=== PATIENT | female | born 1970 | race Caucasian/White ===

== ENCOUNTER 2017-11-30 15:59 | Outpatient (REF) | payer MEDICAID, SELFPAY ==
--- NOTE | 2017-11-30 12:30 | ENDOMET_PTH ---
PATIENT: Lea Montes LOC: [facility] U#:[id number] AGE/SX: 47/F ROOM: RE11/30/[address]: Nazario Nair MD : [id number] BED: DIS: 11/30/2017 SPEC #: [id number] RECD: 11/30/17 17:04 STATUS: CANDI RERyan #: [id number] ZOE: 11/30/17 12:[address]: Nazario Nair DEPT: Surgical Specimen RECD BY: Sharona Tran ENTERED: 11/30/17 17:05 SP TYPE: Endomet OTHR DR: Kiersten Sanchez Tissues: 1 - ENDOMETRIUM BX/TAHMINAETTE Procedures: GROSS AND MICRO LEVEL 4 Comments: [id number]
== END 2017-11-30 16:19 ==
LOC: LBN 15:59
PROVIDERS: PCP Physician Assistant; Visit Provider Obstetrics & Gynecology
DX: N85.8 Other specified noninflammatory disorders of uterus (principal); N93.8 Other specified abnormal uterine and vaginal bleeding; R93.89 Abnormal findings on diagnostic imaging of other specified body structures
CPT/HCPCS: 88305

== ENCOUNTER 2018-03-21 15:04 | Emergency (ER) | payer MEDICAID, SELFPAY ==
[2018-03-21] VITALS (18 sets, daily range): BP systolic 116–133; BP diastolic 54–77; PULSE 64–70; RESP 17; TEMP 37–37.2; O2SAT 94–99
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
== END 2018-03-21 20:26 | disposition home or self-care (01) ==
PROVIDERS: Emergency Provider Physician Assistant; PCP Physician Assistant
DX: S09.90XA Unspecified injury of head, initial encounter (principal); S16.1XXA Strain of muscle, fascia and tendon at neck level, initial encounter; S20.212A Contusion of left front wall of thorax, initial encounter; V47.5XXA Car driver injured in collision with fixed or stationary object in traffic accident, initial encounter
CPT/HCPCS: 81025; 99284; 70450; 71046; 71100; 72125; 99285; L0172

== ENCOUNTER 2021-11-10 09:16 | Emergency (ER) | payer MEDICAID, SELFPAY ==
[2021-11-10 09:44] VITALS: BP 137/85; PULSE 61; RESP 18; TEMP 36.7; O2SAT 98
[2021-11-10 10:03] LABS: Bilirubin Negative (Negative); Blood Small (Negative); Clarity Sl Cloudy (Clear); Glucose Negative (Negative); Ketones Negative (Negative); Leukocyte Esterase Small (Negative); Nitrite Negative (Negative); Specific Gravity >= 1.030 (1.005-1.025); Urobilinogen 0.2 EU/dL (Up TO 0.2); pH 5.5 (5-8)
[2021-11-10 10:13] LABS: Bacteria Moderate HPF (Negative); Crystals Negative HPF (Negative); Epithelial Cells Few HPF (Negative); Mucus Trace (Negative)
[2021-11-10 10:14] LABS: C & S Indicated? Yes; Casts Negative LPF (Negative)
--- NOTE | 2021-11-10 11:00 | DI.CT_ITS ---
Exam(s) CT ABDOMEN PELVIS WO/W EXAM: CT ABDOMEN PELVIS WO/W CLINICAL HISTORY: ct urogram, right flank pain, hx of RCC, partial n TECHNIQUE: Imaging Protocol: Axial computed tomography images with coronal and sagittal reformatted images were created and reviewed CONTRAST MATERIAL: Intravenous: Omnipaque 350 Contrast volume:100 mL Oral: No COMPARISON: CT ABD/PELVIS WO W CONTRAST from 09/13/2012 CT CHEST FOR PULMONARY EMBOLUS from 05/30/2017 FINDINGS: ABDOMEN: Lung Bases: Normal where visualized. Liver: Normal density. No measurable mass. Portal, Superior Mesenteric, and Splenic Veins: Unremarkable. Gallbladder and Biliary Tract: No radiodense calculus or dilation. Pancreas: Normal density, no abnormal calcifications or inflammatory process. Spleen: Normal. Adrenals: No masses seen. Kidneys: There is a partial left nephrectomy. No radiodense stones or obstructive uropathy. There ar e few tiny hypodensities seen in the kidneys. They are too small for further characterization but li sarah reflect small cysts. Abdominal Aorta: Abdominal portion non-dilated. There is minimal atherosclerosis. Bowel: No obstruction or bowel wall thickening. Appendix is unremarkable. There are few diverticula s een in the colon but no evidence of acute diverticulitis. Peritoneal Cavity: No ascites, collection or mesenteric inflammatory response. No free air. Lymph Nodes: Within normal limits. Bones: Within normal limits for the patient's age. Soft Tissues: There is a fat containing right inguinal hernia. PELVIS: Bladder: Symmetric distention, no gross wall thickening. Reproductive Organs: Unremarkable as visualized. Lymph Nodes: Within normal limits. Bones: Within normal limits for the patient's age. IMPRESSION: 1. No acute abdominal or pelvic process. 2. No evidence of nephrolithiasis or hydronephrosis. No evidence of a renal ureteral or bladder mass . 3. Status post partial left nephrectomy. 4. Small fat containing right inguinal hernia. 5. Unremarkable gallbladder and appendix. 6. Findings were discussed with the emergency department on the date of the examination. RADIATION DOSE DELIVERED: 3,722.78mGy.cm Total DLP 3,722.78mGy.cm Total DLP DATA REPOSITORY: All CT scans at this facility are submitted to the National Radiology Data Registry (NRDR) Dose Index Registry (DIR) with the [employer] ([employer]). RADIATION OPTIMIZATION: All CT scans at this facility use at least one of these dose optimization te chniques: automated exposure control; mA and/or kV adjustment per patient size (includes targeted exa ms where dose is matched to clinical indication); or iterative reconstruction.
[2021-11-10 11:53] LABS: Abs Immature Grans 0.04 10^3/uL (0.0-0.06); Absolute Basophil Count 0.08 10^3/uL (0.0-0.2); Absolute Lymphocyte Count 3.54 10^3/uL (1.2-3.4); Absolute Monocyte Count 1.02 10^3/uL (0.1-0.8); Absolute Neutrophil Count 6.02 10^3/uL (1.2-6.7); Basophils % 0.7; Eosinophils % 2.6; HCT 44.5 % (36.0-46.0); HGB 15.1 g/dL (11.2-15.7); Immature Grans % 0.4; Lymphocytes % 32.2; MCH 32.5 pg (27.0-33.0); MCHC 33.9 % (32.0-36.0); MCV 96 fL (80-95); MPV 10.1 fL (8.0-11.0); Monocytes % 9.3; Neutrophils % 54.8; Platelet Count 183 10^3/uL (130-400); RBC 4.65 10^6/uL (3.93-5.22); RDW 12.6 % (11.7-14.6); RDW-SD 44.7 fL; WBC 10.98 10^3/uL (4.4-10.8)
[2021-11-10 11:54] LABS: Absolute Eosinophil Count 0.29 10^3/uL (0.0-0.7)
[2021-11-10 12:14] LABS: ALT 24 U/L (14-59); AST 15 U/L (15-37); Albumin 3.5 g/dL (3.4-5.0); Alkaline Phosphatase 108 U/L (46-116); Anion Gap 5.4 mmol/L (3-11); BUN 14 mg/dL (7-18); Bilirubin, Total 0.3 mg/dL (0.2-1.0); CO2 28.6 mmol/L (21.0-32.0); CREATININE 0.8 mg/dL (0.55-1.02); Calcium 9.3 mg/dL (8.5-10.1); Chloride 106 mmol/L (98-107); Estimated GFR 88.05 (mL/min/1.73m2); Glucose 93 mg/dL (74-106); Lipase 93 U/L (73-393); Sodium 140 mmol/L (136-145); Total Protein 7.3 g/dL (6.4-8.2)
[2021-11-10] MEDS: Omnipaque 350 MG/ML 100 ML BTL IV (13:12)
[2021-11-10] MEDS: Normal Saline Flush 10 ML SYR IVP (13:17)
[2021-11-10 13:19] VITALS: BP 128/53; PULSE 58; O2SAT 100
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
== END 2021-11-10 14:48 | disposition home or self-care (01) ==
PROVIDERS: Physician Assistant; Emergency Provider Physician Assistant; PCP Physician Assistant
DX: N39.0 Urinary tract infection, site not specified (principal); B96.89 Other specified bacterial agents as the cause of diseases classified elsewhere; F17.210 Nicotine dependence, cigarettes, uncomplicated
CPT/HCPCS: 80053; 83690; 99285; 74178; 81003; 81015; 85025; 87086; 99284; J3490

== ENCOUNTER 2021-12-06 13:47 | Emergency (ER) | payer MEDICAID, SELFPAY ==
[2021-12-06] VITALS (13 sets, daily range): BP systolic 129–154; BP diastolic 77–83; PULSE 61–90; RESP 9–21; TEMP 36.5; O2SAT 88–99
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
[2021-12-06 14:33] LABS: Abs Immature Grans 0.01 10^3/uL (0.0-0.06); Absolute Basophil Count 0.07 10^3/uL (0.0-0.2); Absolute Eosinophil Count 0.29 10^3/uL (0.0-0.7); Absolute Lymphocyte Count 2.17 10^3/uL (1.2-3.4); Absolute Monocyte Count 0.83 10^3/uL (0.1-0.8); Absolute Neutrophil Count 5.28 10^3/uL (1.2-6.7); Basophils % 0.8; Eosinophils % 3.4; HCT 47.6 % (36.0-46.0); HGB 15.9 g/dL (11.2-15.7); Immature Grans % 0.1; Lymphocytes % 25.1; MCH 31.5 pg (27.0-33.0); MCHC 33.4 % (32.0-36.0); MCV 94 fL (80-95); MPV 10.5 fL (8.0-11.0); Monocytes % 9.6; Platelet Count 169 10^3/uL (130-400); RBC 5.04 10^6/uL (3.93-5.22); RDW 12.5 % (11.7-14.6); RDW-SD 43.7 fL; WBC 8.65 10^3/uL (4.4-10.8)
[2021-12-06 14:47] LABS: ALT 22 U/L (14-59); AST 19 U/L (15-37); Albumin 3.6 g/dL (3.4-5.0); Alkaline Phosphatase 99 U/L (46-116); Anion Gap 6.7 mmol/L (3-11); BUN 13 mg/dL (7-18); Bilirubin, Total 0.3 mg/dL (0.2-1.0); CO2 29.3 mmol/L (21.0-32.0); CREATININE 0.9 mg/dL (0.55-1.02); Chloride 104 mmol/L (98-107); Estimated GFR 76.44 (mL/min/1.73m2); Glucose 97 mg/dL (74-106); Potassium 3.7 mmol/L (3.5-5.1); Sodium 140 mmol/L (136-145); Total Protein 7.5 g/dL (6.4-8.2)
[2021-12-06] MEDS: Omnipaque 350 MG/ML 500 ML BTL-Imaging package IJ (15:42)
[2021-12-06] MEDS: Normal Saline Flush 10 ML SYR IVP (15:45)
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
[2021-12-06] MEDS: Acetaminophen 325 MG TAB 650 MG PO (17:16)
== END 2021-12-06 17:31 | disposition home or self-care (01) ==
PROVIDERS: Emergency Provider Student in an Organized Health Care Education/Training Program; PCP Physician Assistant
DX: S20.211A Contusion of right front wall of thorax, initial encounter (principal); K82.8 Other specified diseases of gallbladder; S10.93XA Contusion of unspecified part of neck, initial encounter; V89.2XXA Person injured in unspecified motor-vehicle accident, traffic, initial encounter
CPT/HCPCS: 70498; 74177; 80053; 86850; 86900; 86901; 99285; 70450; 71260; 72125; 85025; 99282

== ENCOUNTER 2021-12-12 08:07 | Emergency (ER) | payer MEDICAID, SELFPAY ==
[2021-12-12 08:13] VITALS: BP 124/50; PULSE 67; RESP 17; TEMP 37.3; O2SAT 98
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
== END 2021-12-12 09:23 | disposition home or self-care (01) ==
PROVIDERS: Emergency Provider Physician Assistant; PCP Physician Assistant
DX: T16.1XXA Foreign body in right ear, initial encounter (principal); X58.XXXA Exposure to other specified factors, initial encounter
CPT/HCPCS: 99281; 99282

== ENCOUNTER 2022-03-15 08:40 | Emergency (ER) | payer MEDICAID, SELFPAY ==
[2022-03-15 08:44] VITALS: BP 125/79; PULSE 76; RESP 16; TEMP 36.9; O2SAT 98
--- NOTE | 2022-03-15 08:45 | DI.RAD_ITS ---
Exam(s) XR HAND LT COMPLETE EXAM: XR HAND LT COMPLETE CLINICAL HISTORY: Thenar eminence pain, FOOSH injury R/O Fracture. TECHNIQUE: 2D digital imaging was performed. COMPARISON: No exams were available for comparison FINDINGS: 3 views No evidence of fracture or dislocation. No radiopaque foreign body. No osseous lesions nor erosions . IMPRESSION: No fracture evident. DATA REPOSITORY: RADIATION DOSE DELIVERED:
--- NOTE | 2022-03-15 09:00 | ED.GENADUL_ITS ---
Discharge Plan Disposition Patient Disposition: Home Condition: Stable Discharge Details Clinical Impression: Closed head injury with concussion, Sprain of hand, thumb, left, Fall from other slipping, tripping, or stumbling Primary Care Provider: Kiersten Sanchez ED Provider: Mary Kay Grier Home Meds and New Rx's Prescriptions: Continued furosemide 20 mg tablet 1 tab PO DAILY Label Comments: TAKE 1 TABLET BY MOUTH EVERY DAY albuterol sulfate [ProAir HFA] 90 mcg/actuation HFA aerosol inhaler 1 inh INHALATION PRN PRN Label Comments: INHALE TWO PUFFS BY MOUTH EVERY 4 TO 6 HOURS NEEDED Advair HFA 230-21 mcg/actuation HFA aerosol inhaler 2 inh INHALATION DAILY Label Comments: INHALE TWO PUFFS BY MOUTH TWICE A DAY Discharge Instructions Instructions: Head Injury (ED), Fall Prevention (ED) Additional Instructions: CT of your head shows no acute intracranial abnormality. The x-ray of your hand is within normal limits. I do suspect mild concussion and a hand sprain. You will be sore for the next few days. Take the nausea medication up to 3 times daily as needed for nausea 20 to 30 minutes before eating or drinking anything. Take the Flexeril as prescribed. This may make you sleepy do not operate heavy machinery while taking this medication. You may alternate ice and heat if this helps. Follow up with primary care provider in 3-5 days. Return to ED sooner if any worsening headache not relieved by Tylenol or ibuprofen, confusion, vomiting, worsening visual disturbances or concerns. Increase oral fluids. Please take Tylenol with food every 4-6 hours as needed for pain and swelling. Referrals: Kiersten Sanchez [Primary Care Provider] - 2 weeks Medical Decision Making 48-year-old female presents with mechanical fall yesterday slipping on the ice. She is complaining of headache, visual disturbances she reports floaters to her right eye. Daytime sleepiness and nausea. She denies any loss of conscio usness. She does have some paraspinous neck pain no midline C-spine tenderness no midline T or L-spine tenderness. She also complaining of some left hand pain. She did take Tylenol yesterday. She is alert and oriented x4. Zofran ordered for nausea. CT head ordered to rule out intracranial abnormality and x-ray of left hand. Patient is alert and oriented no focal neurodeficits noted. I do suspect a concussion. Will rule out fracture to left hand. I did offer patient a muscle relaxer which she declined at this time so she drove herself here. CT within normal limits, hand shows no fracture. I did discuss these results with patient who verbalized understanding. She reports that her nausea is better she is requesting muscle relaxer and nausea medication to go home with. Patient given bottle of Flexeril and Zofran to go. Discussed strict return instructions and red flags with her she verbalized understanding. This text was generated using [employer] system, please disregard any oddities of phrase or misspellings. Medical Records Medical records reviewed: Yes I reviewed the patient's medical records. HPI General Mode of arrival: ambulatory . Date/Time Provider Initiated Documentation: 03/15/22 08:45 . Limitations to Documentation: no limitations . Information obtained by: patient, RN notes reviewed and old records reviewed . HPI Narrative: Female presents to the ER status post slip and fall yesterday on the ice. Patient reports that her feet went out from underneath her and she landed on her back and back of her head. She also put her left arm out with a FOOSH type injury. She is complaining of left hand pain, headache, increased sleepiness, eye floaters and overall stiffness. She denies any loss of consciousness during the fall. She denies any neck pain no midline C-spine tenderness with palpation no back pain or hip or pelvis pain. She endorses nausea no vomiting. Past medical history includes bipolar disorder, depression migraine obesity, renal cancer. She reports that she is just been diagnosed with breast cancer. She does have a surgical history of nephrectomy, bladder repair surgery and a bladder sling. She reports that she took Tylenol yesterday none this morning. Related Data Home Medications Medication Instructions Recorded Confirmed albuterol sulfate 90 mcg/actuation 1 inh inhalation PRN PRN 11/10/21 03/15/22 aerosol inhaler (ProAir HFA) fluticasone propionate 230 2 inh inhalation DAILY 11/10/21 03/15/22 mcg-salmeterol 21 mcg/actuation HFA inhaler (Advair HFA) furosemide 20 mg tablet 1 tab PO DAILY 11/10/21 03/15/22 Allergies Allergy/AdvReac Type Severity Reaction Status Date / Time ibuprofen Allergy Severe Swelling/Ed Unverified 03/15/22 08:47 lety Penicillins Allergy Severe Anaphylaxsi Unverified 03/15/22 08:47 s morphine Allergy Anaphylaxis Unverified 03/15/22 08:47 NSAIDS (Non-Steroidal Allergy Unverified 03/15/22 08:47 Anti-Inflamma General Stated Complaint: Fall/Non TraumaCriteria ANTHONY: 4 Review of Systems All systems reviewed & are unremarkable except as noted in HPI and below Constitutional Constitutional: Reports as per HPI, Reports daytime sleepiness, Reports headache(s) and Denies weakness Eyes Eyes: Denies blurry vision, Reports floaters, Denies loss of peripheral vision and Denies loss of vision ENT Ears, Nose, Mouth, and Throat: Denies abnormal hearing, Denies vertigo, Denies dizziness and Reports headache(s) Cardiovascular Cardiovascular: Denies chest pain and Denies dyspnea Respiratory Respiratory: Denies dyspnea Musculoskeletal Musculoskeletal: Denies back pain, Denies deformity, Reports arthralgias, Denies loss of height, Denies numbness, Reports stiffness and Reports tingling (Left hand (Chronic)) Integumentary/Breasts Skin/Breast: Reports skin pain, Denies skin swelling and Denies wounds Neurologic Neurologic: Reports as per HPI, Denies abnormal hearing, Denies abnormal movements, Denies abnormal speech, Denies confusion, Denies vertigo, Denies dizziness, Reports headache(s), Denies lack of coordination, Denies localized weakness, Denies loss of vision, Denies memory loss, Denies numbness, Reports tingling (Left hand (Chronic)), Denies weakness and Reports other Psychiatric Psychiatric: Denies confusion and Denies memory loss PFSH All Active Problems (Updated 03/15/22 @ 10:27 by Mary Kay Grier NP) Closed head injury with concussion (Acute) Sprain of hand, thumb, left (Acute) Fall from other slipping, tripping, or stumbling (Acute) History of endometrial biopsy (Acute) Medical History (Updated 03/15/22 @ 10:27 by Mary Kay Grier NP) Bipolar disorder Depression Migraine Obesity Renal cancer Surgical History H/O bladder repair surgery History of nephrectomy Partial Nephrectomy TOT (Incontinence sling) Social History Smoking/Tobacco Use Status: Current every day Tobacco Type: cigarettes Smoking risk assessment performed?: Yes Alcohol Intake: current Alcohol Intake frequency: holidays/special occasions only Alcohol type: wine Drug use: Daily Substance use type: marijuana Do you feel safe at home: Yes Do you feel safe in your relationship?: Yes Exam Narrative Exam Narrative: General: Well Developed, Awake and Alert, conversant. Skin: Warm and Dry HEENT: Head: No palpable deformities, Normocephalic, tenderness to the occiput with palpation no hematomas palpated no lacerations or wounds. Eyes: Pupils PERRLA, EOM's intact. No periorbital eccymosis or step off Ears: Canal patent. Tympanic membranes are clear . No ventura's sign, no hemptympanum. Nose/Face: Atraumatic. Facial bones nontender to palpation and stable with manipulation. Mouth/Throat: No intraoral trauma. Teeth and mandible are intact. Neck: No midline tenderness, no step off, no deformity to palpation of C-spine. Trachea midline. Chest: No surface trauma. Nontender without crepitus or deformity. Lungs clear to ausculatation bilaterally. Heart: RRR, no rubs, murmurs or gallop. Abdomen: No abrasions, ecchymosis, or surface trauma. Nondistended. Nontender to palpation no guarding, rebound, or rigidity. Pelvis: Nontender to palpation and stable to compression. Femoral pulses strong and equal Extremities: no surface trauma. Sensation intact. Peripheral pulses intact and equal. Tenderness to the left thenar eminence, no obvious deformity noted no wrist pain no forearm pain. Neuro: ANO x4, GCS 15, cranial nerves II through XII intact. Motor and sensory exam nonfocal. Reflexes are symmetric. Course Vital Signs Vital signs: Vital Signs Temperature 36.9 C 03/15/22 08:44 Pulse 76 03/15/22 08:44 Respiratory Rate 16 03/15/22 08:44 Blood Pressure 125/79 03/15/22 08:44 Pulse Oximetry 98 03/15/22 08:44 Temperature 36.9 C 03/15/22 08:44 Temperature Source Temporal Artery Scan 03/15/22 08:44 Pulse 76 03/15/22 08:44 Respiratory Rate 16 03/15/22 08:44 Respiratory Effort Non-Labored 03/15/22 08:47 Blood Pressure 125/79 03/15/22 08:44 Blood Pressure Position Sitting 03/15/22 08:44 Pulse Oximetry 98 03/15/22 08:44 Oxygen Delivery Method Room Air 03/15/22 08:44 Oxygen Flow Rate 0 03/15/22 08:44 Pain Level 10 03/15/22 08:44
[2022-03-15] MEDS: Ondansetron O.D.T. 4 MG TABEF PO (09:05)
--- NOTE | 2022-03-15 09:46 | DI.CT_ITS ---
Exam(s) CT HEAD WO EXAM: CT HEAD WO CLINICAL HISTORY: Fall, Closed head Injury. TECHNIQUE: Imaging Protocol: Axial computed tomography images with coronal and sagittal reformatted images were created and reviewed COMPARISON: CT CT HEAD CERVICAL SPINE WO from 12/06/2021 FINDINGS: There are no skull fractures. There is no fluid in the visualized paranasal sinuses. There is no evidence of intracranial hemorrhage, mass effect, or shift of midline structures. There are no extra-axial fluid collections. The ventricles are not enlarged or shifted and there is no blo od within the ventricular system nor within the basal cisterns. IMPRESSION: No acute intracranial findings on this noninfused CT scan of the brain. Called by myself to ER RADIATION DOSE DELIVERED: 822.59mGy.cm Total DLP DATA REPOSITORY: All CT scans at this facility are submitted to the National Radiology Data Registry (NRDR) Dose Index Registry (DIR) with the [employer] (ACR). RADIATION OPTIMIZATION: All CT scans at this facility use at least one of these dose optimization te chniques: automated exposure control; mA and/or kV adjustment per patient size (includes targeted exa ms where dose is matched to clinical indication); or iterative reconstruction.
[2022-03-15] MEDS: Cyclobenzaprine 10 MG TAB, 3 TABS/BTL PO (10:37)
[2022-03-15] MEDS: Ondansetron O.D.T. 4 MG TABEF, 3 TABS/BTL PO (10:38)
[2022-03-15 10:43] VITALS: BP 128/79; PULSE 88; RESP 18; O2SAT 96
== END 2022-03-15 10:46 | disposition home or self-care (01) ==
PROVIDERS: Emergency Provider Registered Nurse Emergency; PCP Physician Assistant
DX: S06.0X0A Concussion without loss of consciousness, initial encounter (principal); S63.602A Unspecified sprain of left thumb, initial encounter; G89.11 Acute pain due to trauma; M54.2 Cervicalgia; W00.0XXA Fall on same level due to ice and snow, initial encounter; R11.0 Nausea
CPT/HCPCS: 99284; 70450; 73130

== ENCOUNTER 2022-07-27 02:45 | Outpatient (CLI) | payer MEDICAID, SELFPAY ==
--- NOTE | 2022-07-27 10:00 | DI.DEXA_ITS ---
Exam(s) XR DEXA BONE DENSITY W/WO FIDENCIO EXAM: XR DEXA BONE DENSITY W/WO FIDENCIO CLINICAL HISTORY: BREAST CA,C50.919,Z17.0,SENIOR LIVING USE AROMATASE INHIBITOR TECHNIQUE: Routine DEXA evaluation of the lumbar spine, hip, or forearm. COMPARISON: No exams were available for comparison FINDINGS: Performed on a Hologic unit. Lateral image: No compression fracture evident. Lumbar Spine total T-score: 0.2 Hip total T-score:1.8 Independent reading at the level of the femoral neck yields T-score of 0.6 Forearm total T-score: 0.1 IMPRESSION: Bone mineral density measures in the normal range. Fracture risk is low Note: Any spine fracture indicates 5x risk for subsequent spine fracture and 2x risk for subsequent h ip fracture. World Health Organization criteria for BMD interpretation classify patients: Normal...... T- Score at or above -1.0 Osteopenic... T- Score between -1.0 and -2.5 Osteoporosis... T-Score at or below -2.5
== END 2022-07-27 03:05 ==
LOC: DI 02:46
PROVIDERS: PCP Physician Assistant; Visit Provider Internal Medicine Medical Oncology
DX: C50.919 Malignant neoplasm of unspecified site of unspecified female breast (principal); Z13.820 Encounter for screening for osteoporosis; Z12.0 Encounter for screening for malignant neoplasm of stomach
CPT/HCPCS: 77080

== ENCOUNTER → 2023-01-29 02:26 | Outpatient (CLI) | payer MEDICAID, SELFPAY ==
--- NOTE | 2023-01-29 | DI.US_ITS ---
Exam(s) US PELVIS TRANSVAGINAL EXAM: US PELVIS TRANSVAGINAL CLINICAL HISTORY: ABNL FINDINGS R93.89 ENDOMETRIUM THICKENING TECHNIQUE: Ultrasound of the pelvis was performed both transabdominal and transvaginal. COMPARISON: US RENAL ULTRASOUND(P) {[id number]} from 12/19/[address] CHEST/ABD/PEL W from 12/06/2021 FINDINGS: UTERUS: Nongravid and anteverted Measures 12 cm length x 6 cm AP x cm wide. There are no uterine fibroids. Endometrial thickness is increased, measuring 17 mm. There is a polypoid density in the fundal aspec t of the endometrium measuring 14 x 10 x 12 mm. there is no fluid in the endometrial canal. CERVIX: There are no obvious nabothian cysts. OVARIES: Both ovaries were not able to be identified CUL-DE-SAC: No free fluid evident. IMPRESSION: 1. Thickened endometrium and there also appears to be a 14 x 10 x 12 mm polypoid structure either wit hin or immediately subjacent to the upper endometrial cavity at the level of the fundus. This probab ly represents a polyp in the endometrial cavity at this level. 2. Both ovaries were not able to be identified. 3. No free fluid evident in the adnexal regions and cul-de-sac. DATA REPOSITORY:
== END ==
PROVIDERS: PCP Physician Assistant; Visit Provider Internal Medicine
DX: R93.89 Abnormal findings on diagnostic imaging of other specified body structures (principal)
CPT/HCPCS: 76830; 76856

== ENCOUNTER 2023-03-05 05:14 | Outpatient (CLI) | payer MEDICAID, SELFPAY ==
[2023-03-05 08:52] LABS: Abs Immature Grans 0.02 10^3/uL (0.0-0.06); Absolute Basophil Count 0.07 10^3/uL (0.0-0.2); Absolute Eosinophil Count 0.31 10^3/uL (0.0-0.7); Absolute Monocyte Count 0.89 10^3/uL (0.1-0.8); Basophils % 0.9; HCT 45.5 % (36.0-46.0); Immature Grans % 0.3; Lymphocytes % 33.8; MCH 31.2 pg (27.0-33.0); MCV 95 fL (80-95); MPV 9.8 fL (8.0-11.0); Monocytes % 11.6; Neutrophils % 49.4; Platelet Count 182 10^3/uL (130-400); RBC 4.81 10^6/uL (3.93-5.22); RDW 13.1 % (11.7-14.6); WBC 7.69 10^3/uL (4.4-10.8)
== END 2023-03-05 05:15 | disposition home or self-care (01) ==
LOC: LBO 05:14
PROVIDERS: PCP Physician Assistant; Visit Provider Obstetrics & Gynecology
DX: Z01.818 Encounter for other preprocedural examination (principal)
CPT/HCPCS: 36415; 86850; 86900; 86901; 85025

== ENCOUNTER 2023-03-07 09:23 | Day surgery (SDC) | payer MEDICAID, SELFPAY ==
[2023-03-07] VITALS (9 sets, daily range): BP systolic 113–195; BP diastolic 55–102; PULSE 55–68; RESP 16–21; TEMP 36.3–36.6; O2SAT 91–98; BMI 42.7
[2023-03-07] MEDS: Lactated Ringers 1,000 ML 125 ML IV (10:08)
--- NOTE | 2023-03-07 10:19 | W.ANESPRE ---
General Info Date of Service Date Performed: 03/07/23 Height: 5 ft 7 in Weight: 123.6 kg Body Mass Index (BMI): 42.7 Surgical Procedure: Operation Date: 03/07/23 12:10 Proposed Procedure Side Surgeon p Dilation & Curettage with Hysteroscopy, Myosure Yael Knowles DO Meds Allergies and Home Medications Allergies Allergy/AdvReac Type Severity Reaction Status Date / Time aspirin Allergy Severe Verified 03/07/23 09:41 ibuprofen Allergy Severe Swelling/Ed Verified 03/07/23 09:41 lety NSAIDS (Non-Steroidal Allergy Severe Anaphylaxis Verified 03/07/23 09:41 Anti-Inflamma Penicillins Allergy Severe Anaphylaxsi Verified 03/07/23 09:41 s morphine Allergy Anaphylaxis Verified 03/07/23 09:41 Home Medication Medication Instructions Recorded albuterol sulfate 90 mcg/actuation 1 inh inhalation PRN PRN 11/10/21 aerosol inhaler (ProAir HFA) fluticasone propionate 230 2 inh inhalation DAILY 11/10/21 mcg-salmeterol 21 mcg/actuation HFA inhaler (Advair HFA) furosemide 20 mg tablet 1 tab PO DAILY 11/10/21 cholecalciferol (vitamin D3) 50 50 mcg PO DAILY 02/14/23 mcg (2,000 unit) capsule venlafaxine 150 mg 150 mg PO DAILY 02/14/23 capsule,extended release 24 hr (Effexor XR) anastrozole 1 mg tablet 1 mg PO DAILY 03/06/23 Current Visit Medications: Current Medications Generic Name Dose Route Start Last Admin Trade Name Freq PRN Reason Stop Dose Admin Ringer's Solution 1,000 mls @ 125 mls/hr 03/07/23 06:00 03/07/23 10:08 IV 03/07/23 23:59 125 mls/hr INFUSION TAE Administration IV Miscellaneous Supplies 1 each 03/07/23 06:00 Iv Access IV 03/07/23 23:59 DIRECTED TAE Sodium Chloride 0 ml 03/07/23 06:00 Normal Saline Flush 10 Ml Syr IV 03/07/23 23:59 PRN PRN Sodium Chloride 0 ml 03/07/23 06:00 Normal Saline 10 Ml Vial IJ 03/07/23 23:59 DIRECTED PRN Sterile Water 0 ml 03/07/23 06:00 Water,Injection,Sterile 10 Ml Vial IJ 03/07/23 23:59 DIRECTED PRN PFSH Active Problems Active Problems: Problem Status Onset Code History of breast cancer Z85.3 Thickened endometrium R93.89 Postmenopausal bleeding N95.0 History of endometrial biopsy Z92.89 Medical History Medical History Breast cancer Radiation tx June 2022 Renal cancer Bipolar disorder Migraine Obesity Depression Surgical History Surgical History H/O bladder repair surgery History of nephrectomy L TOT (Incontinence sling) Partial Nephrectomy Tobacco Smoking/Tobacco Use Status: Current every day Tobacco Type: cigarettes Smoking cigarettes per day: 10 Alcohol Alcohol Intake: current Alcohol type: wine Substance Use Substance use: Daily Substance use type: marijuana Vital Signs and Lab Results Vital Signs Most Recent Vital Signs in EMR: Most Recent Vital Signs Temp Pulse Resp BP Pulse Ox 36.6 C 60 16 113/68 96 03/07/23 09:45 03/07/23 09:45 03/07/23 09:45 03/07/23 09:45 03/07/23 09:45 Point of Care Results Point of Care Results: POC- Test(urine) Negative 03/07/23 10:13 Lab Results Blood Type / Crossmatch: Patient ABO/Rh O Positive 03/05/23 Antibody Screen NEGATIVE 03/05/23 Complete Blood Count: White Blood Count 7.69 10^3/uL (4.4-10.8) 03/05/23 08:45 Red Blood Count 4.81 10^6/uL (3.93-5.22) 03/05/23 08:45 Hemoglobin 15.0 g/dL (11.2-15.7) 03/05/23 08:45 Hematocrit 45.5 % (36.0-46.0) 03/05/23 08:45 Platelet Count 182 10^3/uL (130-400) 03/05/23 08:45 Complete Metabolic Panel: No Data to Display Liver Function Panel: No Data to Display Coagulation Panel: No Data to Display Cardiac Panel: No Data to Display Arterial Blood Gas: No Data to Display Venous Blood Gas: No Data to Display Pancreas Panel: No Data to Display Thyroid Panel: No Data to Display Infectious Disease: No Data to Display Blood Cultures: No Data to Display Toxicology Panel: No Data to Display Imaging and Studies Imaging and Studies Study information below may be from another EMR and interpreted by another provider. Please see original notes in EMR for more complete details. Stress Test Summary: 12/26/13: STRESS TEST REPORT PROTOCOL: Bhavesh. TARGET HEART RATE: 148-175 (85-100% of maximal). HEART RATE ACHIEVED: 155 bpm. TERMINATION OF EXERCISE: At 05 minutes 27 seconds, because: Fatigue, patient request. ARRHYTHMIAS: None. ANGINA: None. EKG CHANGES: None. IMPRESSION: Negative for ischemia. Carotid Artery Summary:: 12/06/13: IMPRESSION: 1. Normal CTA examination of the neck. 2. Results of this exam have been verbally communicated with provider. Anesthesia Assessment and Plan Anesthesia History Personal History: No History of Anesthesia Complications Family History: No Family History of Anesthesia Complications Exercise Tolerance Exercise Tolerance: Metabolic Equivalents>4 Pertinent Negatives Pertinent Negatives: No Symptoms of GERD, No Major Cardiovascular Symptoms or Complaints and No Major Pulmonary Symptoms or Complaints Cardiac & Pulmonary Exam Cardiac Exam: Normal S1/S2 Heart Sounds Pulmonary Exam: Clear Bilateral Breath Sounds Implantable Cardiac Device Does patient have a Pacemaker or an ICD?: No Airway Exam Known Difficult Airway: No Mallampati Class: 1 Mouth Opening: Normal (> 3cm) Thyromental Distance: Greater than 3 cm Neck Range of Motion: Full ROM Neck Circumference: Normal Teeth Condition: Normal Dentition ASA Classification ASA Score: ASA 3 Emergency Case?: No NPO Status NPO Status: NPO Clears >2 hours, Solids >8 hours Anesthesia Plan Resuscitation Status: Full Code Anesthesia Technique: General Anesthesia Airway Planned: LMA Monitors Used: Standard Monitors and SedLine
--- NOTE | 2023-03-07 11:30 | ENDO_PTH ---
PATIENT: Lea Montes LOC: [facility] U#:[id number] AGE/SX: 53/F ROOM: RE03/07/[address]: Yael Knowles DO : 1970 BED: DIS: 03/07/2023 SPEC #: [id number] RECD: 03/07/23 12:07 STATUS: CANDI RE #: [id number] ZOE: 03/07/23 11:[address]: Yael Knowles DEPT: Surgical Specimen RECD BY: Sharona Tran ENTERED: 03/07/23 12:08 SP TYPE: Endo OTHR DR: Dotty Pascual Tissues: 1 - ENDOCERVICAL BX/CURRETTE 2 - ENDOMETRIUM BX/CURRETTE Procedures: GROSS AND MICRO LEVEL 4 Comments: [id number]
--- NOTE | 2023-03-07 11:40 | ROE_ITS ---
Date of service: 03/07/23 Time of Service: 11:40 Operative Note Operative Note DATE OF PROCEDURE: 03/07/23 PRE-OP DIAGNOSIS: Thickened endometrium, suspect polyp POST-OP DIAGNOSIS: same (No polyp seen) PROCEDURE: Hysteroscopy with dilation and curettage SURGEON: Yael Knowles ANESTHESIA TYPE: General LMA/ETT Refer to Anesthesia Record ESTIMATED BLOOD LOSS: 5 PATHOLOGY: other (1. Endocervical curetting 2. Endometrial curetting) Patient was transported to: PACU Patient's condition: stable Indications: Bleeding, thickened endometrium, suspected polyp Findings: Smooth regular endometrial cavity with slightly plush endometrium. No evidence of endocervical or endometrial polyp. No intrauterine fibroids noted. Visuali zation of both tubal ostia without difficulty. Procedure Description: After full informed consent, patient was taken the operating suite with an IV running. She is placed in dorsal supine position and general anesthesia administered. She was prepped and draped in the usual sterile fashion and a timeout was performed. Exam under anesthesia revealed a uterus that was midline and mobile. Speculum was inserted into the vaginal vault and a single-tooth tenaculum used to grasp the anterior lip of the cervix. Cervical os dilated to the point that a 5 mm hysteroscope could be passed with ease. With instillation of normal saline, endometrial cavity was fully visualized and noted to be smooth, regular, with slightly plush endometrium. There is no evidence of polyp, fibroid, or any other injury or uterine lesion noted. Both tubal ostia were visualized without difficulty. At this point the hysteroscope portion was discontinued with a total fluid deficit of 50 mL of normal saline. A gentle endocervical, followed by endometrial curettage was performed. Single-tooth tenaculum was removed and puncture sites were hemostatic. Speculum was removed and the patient was returned to the dorsal supine position. She woke from anesthesia without difficulty and was taken to the postanesthesia care unit. Fluids: Crystalloid per anesthesia +50 ml normal saline at hysteroscope Complications: None apparent Findings: Smooth, regular endometrium with no evidence of intrauterine polyp, or fibroid. EBL: 5 mL Pathology: 1. Endocervical curetting 2. Endometrial curetting
[2023-03-07] MEDS: ACETAMINOPHEN 1,000 MG/100 ML BTL 400 MG IVPB (12:24)
--- NOTE | 2023-03-07 12:25 | W.ANESPOSTOP ---
Postoperative Evaluation Date, Time and Location Date Performed: 03/07/23 Time Performed: 12:25 Patient Location: PACU Vital Signs Most Recent Imported Vital Signs: Most Recent Vital Signs Temp Pulse Resp BP Pulse Ox 36.6 C 68 20 195/77 H 91 L 03/07/23 12:05 03/07/23 12:05 03/07/23 12:05 03/07/23 12:05 03/07/23 12:05 Pain Score Most Recent Pain Score: Most Recent Pain Score Pain Level 0 03/07/23 12:05 Assessment Mental Status: Awake (Alert & Oriented to Patient Baseline) Airway and Respiratory Function: Patent airway with normal (patient baseline) respiratory exam Cardiovascular Function: Hemodynamically Stable (Updated blood pressure 168/88) Hydration Status: Adequately Hydrated Nausea & Vomiting: No Nausea or Vomiting Pain: Pt. Denies Any Pain Peripheral Nerve Block: Patient did not receive a nerve block
== END 2023-03-07 13:40 | disposition home or self-care (01) ==
PROVIDERS: PCP Internal Medicine; Visit Provider Obstetrics & Gynecology
PROC: 0UDB8ZZ Extraction of Endometrium, Via Natural or Artificial Opening Endoscopic (ICD-10-PCS; CPT 58558; principal; 2023-03-07 12:00)
DX: R93.89 Abnormal findings on diagnostic imaging of other specified body structures (principal); Z85.3 Personal history of malignant neoplasm of breast; E66.9 Obesity, unspecified; F32.A Depression, unspecified; Z90.5 Acquired absence of kidney; Z85.528 Personal history of other malignant neoplasm of kidney
CPT/HCPCS: 58558; 81025; 88305; J0131; J1100; J2001; J2405; J2704

== ENCOUNTER 2024-04-24 09:31 | Emergency (ER) | payer MEDICAID, SELFPAY ==
[2024-04-24] VITALS (16 sets, daily range): BP systolic 136–175; BP diastolic 58–89; PULSE 57–75; RESP 11–25; TEMP 36.7; O2SAT 96–99
--- NOTE | 2024-04-24 10:00 | DI.RAD_ITS ---
Exam(s) XR SHOULDER RT COMPLETE 2+V EXAM: XR SHOULDER RT COMPLETE 2+V CLINICAL HISTORY: FAll onto R shoulder, unable to move arm. TECHNIQUE: 2D digital imaging was performed. Five views. COMPARISON: No exams were available for comparison FINDINGS: BONES: Fracture of the greater tuberosity which is displaced shows a few adjacent comminuted fragment s. No additional fractures. No bony destructive lesion is seen. JOINTS: Anterior dislocation of the humeral head with respect to the glenoid. SOFT TISSUE: Normal. IMPRESSION: Anterior shoulder dislocation with greater tuberosity fracture. DATA REPOSITORY: RADIATION DOSE DELIVERED:
--- NOTE | 2024-04-24 10:09 | W.ED.GENAD ---
Discharge Plan Disposition Patient Disposition: Home Condition: Good Discharge Details Clinical Impression: Right humeral fracture, Shoulder dislocation Primary Care Provider: Dotty Pascual ED Provider: Isabelle Freeman Home Meds and New Rx's Prescriptions: No Action venlafaxine [Effexor XR] 150 mg capsule,extended release 24hr 150 mg PO DAILY cholecalciferol (vitamin D3) 50 mcg (2,000 unit) capsule 25 mcg PO DAILY fluticasone propion-salmeterol [Advair HFA] 230-21 mcg/actuation HFA aerosol inhaler 2 puff INHALATION BID fluticasone propionate 50 mcg/actuation spray,suspension 1 spray intranasal BID Rx Instructions: administer into each nostril albuterol sulfate [Ventolin HFA] 90 mcg/actuation HFA aerosol inhaler 1 inh inhalation ONCE PRN anastrozole 1 mg tablet 1 mg PO DAILY Patient Comments: TAKE ONE TABLET BY MOUTH EVERY DAY Discharge Instructions Instructions: Shoulder Dislocation (DC), Upper Arm Fracture ED Additional Instructions: Please call [facility] orthopedics first thing in the morning to schedule a follow-up appointment next week. You have dislocated your right shoulder and sustained a fracture to the humerus. Please wear the sling at all times to prevent movement of the arm. You may use Tylenol 650 mg every 6 hours [id number] as needed for discomfort. Apply ice for 15 to 20 minutes at a time every hour for discomfort. Return to emergency care if you develop new severe arm pain, numbness in the arm, inability to move the fingers/color change/coldness to the fingers, or if you are very worried and need to be rechecked again immediately. Referrals: [facility] [Provider Group] Discharge Data Discharge Date/Time-TO BE ENTERED AT DEPARTURE: 04/24/24 12:56 HPI General Date/Time Provider Initiated Documentation: 04/24/24 09:38. HPI Narrative: Lea is a 54 year old female who presents to the emergency department today for evaluation of right shoulder pain. She reports that she was walking around her mother's truck when she felt herself slip, landed directly on her right shoulder and rolled. She reports pain only to her right shoulder, says she is unable to lift her arm. No distal numbness/tingling, has been sensation in her hand. Denies head injury, neck injury, back pain, difficulty breathing, nausea/vomiting, extremity injury, chest pain, abdominal pain. Past medical history is significant for [] Physical exam remarkable for deformity consistent with shoulder dislocation to right shoulder. No clavicle tenderness to palpation. No overlying ecchymosis/abrasion/lacerations or skin tears. 5 out of 5 muscle strength to hand, sensation grossly intact. Axillary nerve function intact. D/dx includes but is not limited to: Fracture, dislocation. No red flags in history or physical exam concerning for head injury, neck injury, back injury, or other serious injuries. I independently interpreted the following tests: Right shoulder x-ray, dislocation and humerus fracture noted. While in the emergency department, procedural sedation performed by Dr. Bravo, please see his note for details. Reviewed discharge instructions with patient, including symptomatic management and red flags indicating need for return to emergency care. Referral to orthopedics provided. Related Data Home Medications ?Medication ?Instructions ?Recorded ?Confirmed venlafaxine 150 mg 150 mg PO DAILY 02/14/23 04/24/24 capsule,extended release 24 hr (Effexor XR) anastrozole 1 mg tablet 1 mg PO DAILY 03/06/23 04/24/24 albuterol sulfate 90 mcg/actuation 1 inh inhalation ONCE PRN 09/03/23 04/24/24 aerosol inhaler (Ventolin HFA) cholecalciferol (vitamin D3) 50 25 mcg PO DAILY 09/03/23 04/24/24 mcg (2,000 unit) capsule fluticasone propionate 230 2 puff inhalation BID 09/03/23 04/24/24 mcg-salmeterol 21 mcg/actuation HFA inhaler (Advair HFA) fluticasone propionate 50 1 spray intranasal BID 09/03/23 04/24/24 mcg/actuation nasal spray,suspension Allergies Allergy/AdvReac Type Severity Reaction Status Date / Time aspirin Allergy Severe Anaphylaxis Verified 04/24/24 09:52 ibuprofen Allergy Severe Swelling/Ed Verified 04/24/24 09:52 lety NSAIDS (Non-Steroidal Allergy Severe Anaphylaxis Verified 04/24/24 09:52 Anti-Inflamma Penicillins Allergy Severe Anaphylaxsi Verified 04/24/24 09:52 s morphine Allergy Anaphylaxis Verified 04/24/24 09:52 General Stated Complaint: Orthopedic ANTHONY: 3 Review of Systems Narrative: See HPI Exam Const General: cooperative, healthy appearing and no acute distress Nutritional Appearance: average body habitus Orientation: alert and oriented x3 HENMT Head: atraumatic Neck Neck: normal visual inspection and full ROM Resp Effort & Inspection: normal respiratory effort and able to speak in complete sentences Skin General skin exam: no rashes or lesions noted Trauma: no lacerations or abrasions Neuro General: patient alert, patient oriented x3, tone normal, moves all extremities and no focal motor deficits Sensory Exam: no sensory deficits noted Extrem Right upper extremity: no joint enlargement and shoulder/upper arm Details: tenderness, axillary nerve sensory function normal and deformity Location: of the shoulder joint Location: anteriorly; no swelling, no abrasions, no lacerations, no ecchymosis, no crepitus, no foreign bodies and no penetrating wound Course Vital Signs Vital signs: Vital Signs Temperature 36.7 C 04/24/24 09:46 Pulse 66 04/24/24 09:46 Pulse Oximetry 98 04/24/24 09:46 Temperature 36.7 C 04/24/24 09:46 Temperature Source Oral 04/24/24 09:46 Pulse 66 04/24/24 09:46 Blood Pressure Position Sitting 04/24/24 09:46 Pulse Oximetry 98 04/24/24 09:46 Oxygen Delivery Method Room Air 04/24/24 09:46 Oxygen Flow Rate 0 04/24/24 09:46 Pain Level 10 04/24/24 09:51 Medical Decision Making Imaging Data Radiologic Study: Radiologist's impression: Exam(s) XR SHOULDER RT COMPLETE 2+V EXAM: XR SHOULDER RT COMPLETE 2+V CLINICAL HISTORY: FAll onto R shoulder, unable to move arm. TECHNIQUE: 2D digital imaging was performed. Five views. COMPARISON: No exams were available for comparison FINDINGS: BONES: Fracture of the greater tuberosity which is displaced shows a few adjacent comminuted fragments. No additional fractures. No bony destructive lesion is seen. JOINTS: Anterior dislocation of the humeral head with respect to the glenoid. SOFT TISSUE: Normal. IMPRESSION: Anterior shoulder dislocation with greater tuberosity fracture. Quality:SDOH Health Related Social Needs: No Data to Display PFSH All Active Problems (Updated 04/24/24 @ 11:04 by Isabelle Hess) Shoulder dislocation (Acute) Right humeral fracture (Acute) Change in voice (Acute) Difficulty swallowing liquids (Acute) HPV in female (Acute) Pap 07/19 Status post dilation and curettage (Acute) History of breast cancer (Acute) Oncologist, Rachel Rehman MD-[facility] Thickened endometrium (Acute) Postmenopausal bleeding (Acute) History of endometrial biopsy (Acute) Medical History (Updated 04/24/24 @ 11:04 by Isabelle Hess) Acute bronchitis Vitamin D deficiency Urinary incontinence Urge incontinence of urine Thyroid nodule Syncope and collapse Severe obesity Renal cell carcinoma of left kidney Pelvic and perineal pain Nicotine dependence Nonalcoholic steatohepatitis ([place]) Malignant neoplasm of upper outer quadrant of female breast IBS (irritable bowel syndrome) Intrinsic asthma Insomnia Herpes zoster auricularis Headache Glossodynia Ganglion, right wrist Gallbladder polyp Family history of diabetes mellitus Elevated liver enzymes Depressive disorder Cough Chest pain Blood in urine Joint pain of ankle and foot Adenocarcinoma of left breast Acute vaginitis Abnormal uterine bleeding Abnormal Pap smear of cervix Abdominal pain Dysphonia Breast cancer Radiation tx June 2022 Renal cancer Bipolar disorder Migraine Obesity Depression Surgical History (Updated 09/03/23 @ 14:56 by Aliyah Velez RN) History of lobectomy of lung lower lobe of left lung History of lumpectomy of left breast 04/21/2022 H/O bladder repair surgery History of nephrectomy L TOT (Incontinence sling) 10/02/13 Vaginal Sling Removal 05/30/13 introduction of tension free vaginal tape Partial Nephrectomy 2002 Family History (Updated 09/03/23 @ 14:58 by Aliyah Velez, [place]) Mother Breast cancer Hypertension Kidney disease Oropharynx neoplasm Father Diabetes Social History Smoking/Tobacco Use Status: Current every day Tobacco Type: cigarettes Smoking risk assessment performed?: Yes Alcohol Intake: current Alcohol type: wine Drug use: Daily Substance use type: marijuana Housing: house Do you feel safe at home: Yes Do you feel safe in your relationship?: Yes
[2024-04-24] MEDS: Acetaminophen 325 MG TAB 650 MG PO (10:39)
--- NOTE | 2024-04-24 12:20 | ANES.NERVE_ITS ---
Nerve Block Single Injection Procedure Date and Time Date Performed: 04/24/24 Procedure Start: 12:04 Location Where Procedure Performed Procedure Location: Emergency Department Reason Performed: Postoperative Analgesia Requesting Provider: Doc Bravo Timeout Performed Timeout Performed: Yes Monitoring Used ECG, Blood Pressure and SpO2 Sterility Sterility: Hand Hygiene, Surgical Cap, Surgical Mask, Sterile Gloves and Chlorhexidine Sedation Given During Procedure Sedation Given (Indicate Dose Given): No Sedation given Patient Mental Status Patient Mental Status: Awake Nerve Block 1st Nerve Block: Laterality: Right Block Type: Interscalene Ultrasound Image Saved?: Yes Needle / Catheter Used: 100mm SonoPlex II Local Anesthetic Bolus (Indicate Dose Given): Lidocaine used for local infiltration of skin, Injected in 3-5ml increments after negative blood aspiration and Chloroprocaine 3% Dose:: 15 ml Additives (Indicate Dose Given): None Ultrasound: Sterile probe cover and gel used Nerve Stimulator: Supplement to Ultrasound use and No twitch or parasth esia noted < 0.5 mA Paresthesia: None Post Procedure Pain score (0-10): 5 Procedure Tolerated: No Complications and Patient tolerated well Procedure Outcome: Successful Procedure Comment: Shoulder pain decreased from 10/10 to 5/10 Performed By: Pily Muller
--- NOTE | 2024-04-24 18:19 | W.ED.PROC ---
Date of service: 04/24/24 Time of Service: 18:19 Procedures Orthopedic Joint Reduction Joint #1: Time Out Performed: Yes Side: right Joint Reduction Location: shoulder Analgesia: other (Nerve block performed by anesthesia) Shoulder Technique Used (if applicable): traction/counter-traction Post-reduction neuro exam: intact Post-reduction vascular: intact Splint Applied: Yes Patient Tolerated Procedure: well and no complications Additional Comments: I was requested to perform shoulder reduction by patient's practitioner Isabelle Aguilar, the patient was consented and agreed to the procedure. Propofol was drawn out for potential conscious sedation if needed. X-ray showed evidence of dislocation. Block was performed by anesthesia, gentle traction and countertraction was applied to the patient's arm and the shoulder was reduced quickly without difficulty. Patient tolerated this well. She demonstrated full range of motion postprocedure. She had no neurovascular compromise postprocedure. I did inform Isabelle of the successful reduction clinically. The remainder of the case and disposition was managed by Isabelle. Medical Decision Making Quality:SDOH Health Related Social Needs: No Data to Display
== END 2024-04-24 12:56 | disposition home or self-care (01) ==
PROVIDERS: Emergency Provider Nurse Practitioner Family; PCP Internal Medicine
DX: S42.301A Unspecified fracture of shaft of humerus, right arm, initial encounter for closed fracture (principal); S43.004A Unspecified dislocation of right shoulder joint, initial encounter; F17.210 Nicotine dependence, cigarettes, uncomplicated; W00.0XXA Fall on same level due to ice and snow, initial encounter
CPT/HCPCS: 23665; 64415; 99283; 73030; 99284; J2401

== ENCOUNTER 2024-04-29 14:48 | Outpatient (CLI) | payer MEDICAID, SELFPAY ==
--- NOTE | 2024-04-29 09:00 | DI.RAD_ITS ---
Exam(s) XR SHOULDER RT COMPLETE 2+V EXAM: XR SHOULDER RT COMPLETE 2+V INDICATION: F/U FRACTURE. COMPARISON: CR XR SHOULDER RT COMPLETE 2+V from 04/24/2024 TECHNIQUE: 2D digital imaging was performed. Two views. FINDINGS: The greater tuberosity fracture appears nondisplaced on the two views performed. No glenoid fracture is visible. There are mild degenerative changes of the AC joint. DATA REPOSITORY: RADIATION DOSE DELIVERED:
== END 2024-04-29 14:49 | disposition home or self-care (01) ==
LOC: DIORS 14:49
PROVIDERS: PCP Internal Medicine; Visit Provider Physician Assistant
DX: S42.321D Displaced transverse fracture of shaft of humerus, right arm, subsequent encounter for fracture with routine healing (principal); X58.XXXD Exposure to other specified factors, subsequent encounter
CPT/HCPCS: 73030

== ENCOUNTER 2024-05-27 11:42 | Outpatient (CLI) | payer MEDICAID, SELFPAY ==
--- NOTE | 2024-05-27 09:45 | DI.RAD_ITS ---
Exam(s) XR SHOULDER RT COMPLETE 2+V EXAM: XR SHOULDER RT COMPLETE 2+V CLINICAL HISTORY: F/U FRACTURE. TECHNIQUE: 2D digital imaging was performed of the right shoulder. Two images were obtained. Grash ey and Y views were obtained. COMPARISON: CR XR SHOULDER RT COMPLETE 2+V from 04/24/2024 CR XR SHOULDER RT COMPLETE 2+V from 04/29/2024 FINDINGS: BONES: The fracture of the greater tuberosity appears nearly completely healed. There is a persisten t small area of the fracture line visualized superiorly. No new fractures present. No bony destruct camryn lesion is seen. JOINTS: No dislocation present. Degenerative changes are seen at the acromioclavicular joint. SOFT TISSUE: Normal. IMPRESSION: Near complete healing of the right greater tuberosity fracture. DATA REPOSITORY: RADIATION DOSE DELIVERED:
== END 2024-05-27 11:43 | disposition home or self-care (01) ==
LOC: DIORS 11:42
PROVIDERS: PCP Internal Medicine; Visit Provider Student in an Organized Health Care Education/Training Program
DX: S42.201D Unspecified fracture of upper end of right humerus, subsequent encounter for fracture with routine healing (principal); X58.XXXD Exposure to other specified factors, subsequent encounter
CPT/HCPCS: 73030

== ENCOUNTER 2024-07-01 09:41 | Outpatient (CLI) | payer MEDICAID, SELFPAY ==
--- NOTE | 2024-07-01 09:15 | DI.RAD_ITS ---
Exam(s) XR SHOULDER RT COMPLETE 2+V EXAM: XR SHOULDER RT COMPLETE 2+V INDICATION: F/U FRACTURE. COMPARISON: CR XR SHOULDER RT COMPLETE 2+V from 04/24/2024 CR XR SHOULDER RT COMPLETE 2+V from 04/29/2024 CR XR SHOULDER RT COMPLETE 2+V from 05/27/2024 TECHNIQUE: 2D digital imaging was performed. Two views. 2D digital imaging was performed. Two views. FINDINGS: Continued healing of the the greater tuberosity fracture which is only faintly visible. No new abnor malities. DATA REPOSITORY: RADIATION DOSE DELIVERED:
== END 2024-07-01 09:42 | disposition home or self-care (01) ==
LOC: DIORS 09:41
PROVIDERS: PCP Internal Medicine; Referring Provider Internal Medicine; Visit Provider Student in an Organized Health Care Education/Training Program
DX: S42.321D Displaced transverse fracture of shaft of humerus, right arm, subsequent encounter for fracture with routine healing (principal); X58.XXXD Exposure to other specified factors, subsequent encounter
CPT/HCPCS: 73030